=== PATIENT | male | born 1970 | race Two or more races ===

== ENCOUNTER 2017-09-03 07:30 | Outpatient (CLI) | payer OTHER | END 2017-09-03 07:38 | disposition home or self-care (01) | LOC: RAD 07:30 | DX: R03.0 Elevated blood-pressure reading, without diagnosis of hypertension (principal) ==

== ENCOUNTER 2020-02-14 09:10 | Emergency (ER) | payer OTHER ==
[~2020-02-14] VITALS: Ht 177.8 cm; Wt 181.4 kg
[2020-02-14] MEDS ORDERED: MAXIMUM D3325 MCG PO (09:26)
[2020-02-14] MEDS ORDERED: METFORMIN HCL1000 M3 PO (09:26)
[2020-02-14] MEDS ORDERED: ROSUVASTATIN CA20 MG PO (09:27)
[2020-02-14] MEDS ORDERED: PIOGLITAZONE HC15 MG PO (09:27)
[2020-02-14] MEDS ORDERED: KETO10TA2 PO (13:03)
[2020-02-14] MEDS ORDERED: NORFLEX100MG PO (13:03)
== END 2020-02-14 13:14 | disposition home or self-care (01) ==
LOC: ER 09:10
DX: M25.562 Pain in left knee (principal); M54.5 Low back pain

== ENCOUNTER 2020-02-21 08:01 | Emergency (ER) | payer OTHER ==
[~2020-02-21] VITALS: Ht 177.8 cm; Wt 181.4 kg
[~2020-02-21 08:01] MED LIST: KETO10TA2 PO; MAXIMUM D3325 MCG PO; METFORMIN HCL1000 M3 PO; NORFLEX100MG PO; PIOGLITAZONE HC15 MG PO; ROSUVASTATIN CA20 MG PO
== END 2020-02-21 10:22 | disposition home or self-care (01) ==
LOC: ER 08:01
DX: G58.8 Other specified mononeuropathies (principal); E11.42 Type 2 diabetes mellitus with diabetic polyneuropathy

== ENCOUNTER 2020-03-14 08:38 | Outpatient (CLI) | payer OTHER | END 2020-03-14 08:47 | disposition home or self-care (01) | LOC: RAD 08:38 | PROVIDERS: ATTEND Internal Medicine | DX: G35 Multiple sclerosis (principal); M25.552 Pain in left hip; M25.551 Pain in right hip; M16.0 Bilateral primary osteoarthritis of hip ==

== ENCOUNTER 2020-03-15 11:08 | Outpatient (CLI) | payer OTHER | END 2020-03-15 11:12 | disposition home or self-care (01) | LOC: NUCLEAR 11:08 | PROVIDERS: ATTEND Internal Medicine | DX: I87.2 Venous insufficiency (chronic) (peripheral) (principal) ==

== ENCOUNTER 2022-06-18 18:26 | Emergency (ER) | payer OTHER ==
[~2022-06-18] VITALS: Ht 177.8 cm; Wt 164.2 kg
[2022-06-18] MEDS ORDERED: SIMVASTATIN5 MG (18:54)
[2022-06-18] MEDS ORDERED: NEURONTIN600 M1 (18:55)
[2022-06-18] MEDS ORDERED: PHENAGIL CH TA1 EACH (18:55)
== END 2022-06-18 19:41 | disposition home or self-care (01) ==
LOC: ER 18:26
DX: B35.8 Other dermatophytoses (principal)

== ENCOUNTER 2022-08-11 21:02 | Emergency (ER) | payer OTHER ==
[~2022-08-11] VITALS: Ht 177.8 cm; Wt 164.2 kg
[~2022-08-11 21:02] MED LIST changes: +NEURONTIN600 M1; +PHENAGIL CH TA1 EACH; +SIMVASTATIN5 MG
== END 2022-08-12 03:34 | disposition home or self-care (01) ==
LOC: ER 21:02
DX: R10.9 Unspecified abdominal pain (principal); K57.90 Diverticulosis of intestine, part unspecified, without perforation or abscess without bleeding

== ENCOUNTER 2023-03-27 20:29 | Emergency (ER) | payer OTHER ==
[~2023-03-27] VITALS: Ht 177.8 cm; Wt 167.8 kg
== END 2023-03-27 23:24 | disposition home or self-care (01) ==
LOC: ER 20:29
DX: F41.9 Anxiety disorder, unspecified (principal)

== ENCOUNTER 2023-04-16 18:02 | Emergency (ER) | payer OTHER ==
[~2023-04-16] VITALS: Ht 177.8 cm; Wt 169.6 kg
[2023-04-16] MEDS ORDERED: ACTOS45 MG PO (18:25)
[2023-04-16] MEDS ORDERED: GRALISE600 MG PO (18:26)
[2023-04-16] MEDS ORDERED: ORPHENADRINE CITRATE 30 MG/ML AMPUL IM STA (20:03)
[2023-04-16] MEDS ORDERED: KETOROLAC TROMETHAMINE 30 MG VIAL IM STA (20:03)
== END 2023-04-16 20:23 | disposition home or self-care (01) ==
LOC: ER 18:03
DX: M54.89 Other dorsalgia (principal)

== ENCOUNTER 2025-01-22 08:05 | Outpatient (CLI) | payer OTHER ==
[~2025-01-22 08:05] MED LIST changes: +ACTOS45 MG PO; +GRALISE600 MG PO
== END 2025-01-22 08:08 | disposition home or self-care (01) ==
LOC: RAD 08:05
PROVIDERS: ATTEND Family Medicine
DX: I70.0 Atherosclerosis of aorta (principal)